=== PATIENT | female | born 1970 | race Caucasian/White ===

== ENCOUNTER 2019-09-03 08:33 | Day surgery (SDC) | payer OTHER ==
[~2019-09-03] VITALS: Ht 162.6 cm; Wt 74.4 kg
[~2019-09-03 08:33] MED LIST: BUPIVACAINE/PF 0.25% ONE; CHOL2000 PO; INDIGO CARMINE 0.8%, 5ML ONE; LEVO125T5 PO; THROMBIN (RECOMBINANT) 5,000 UNIT VIAL TP ONE; THROMBIN SPRAY 20,000 UNIT SPRAY TP ONE; [UNRECOGNIZED DRUG - OTHER] PEG
[2019-09-03] MEDS ORDERED: LACTATED RINGERS 1,000 ML IV SCH ×2 (08:56→12:08)
[2019-09-03] MEDS ORDERED: ACETAMINOPHEN 500 MG TABLET PO ONE (09:00)
[2019-09-03] MEDS ORDERED: LIDOCAINE-MPF 1%, 2ML INFIL ONE (09:00)
[2019-09-03] MEDS ORDERED: DIAZEPAM 5 MG TABLET PO ONE (09:00)
[2019-09-03] MEDS ORDERED: SCOPOLAMINE PATCH, 1.5MG PATCH.TD72 TD ONE (09:00)
[2019-09-03 09:03] VITALS: BP 110/75
[2019-09-03] MEDS ORDERED: VANCOMYCIN 1,000 MG ONE (10:06)
[2019-09-03] MEDS ORDERED: FENTANYL PF 250 MCG/5ML ONE (10:18)
[2019-09-03] MEDS ORDERED: MIDAZOLAM 1 MG/ML, 2ML ONE (10:18)
[2019-09-03] MEDS ORDERED: DEXAMETHASONE 4 MG/ML, 1ML ONE (10:19)
[2019-09-03] MEDS ORDERED: PROPOFOL 10 MG/ML, 20ML ONE (10:19)
[2019-09-03] MEDS ORDERED: ROCURONIUM 10MG/ML,5ML ONE (10:19)
[2019-09-03] MEDS ORDERED: GLYCOPYRROLATE 0.2MG/1ML, 5ML ONE (10:24)
[2019-09-03] MEDS ORDERED: CEFAZOLIN 1,000 MG ONE (10:24)
[2019-09-03] MEDS ORDERED: NEOSTIGMINE 1 MG/ML, 10ML ONE (10:24)
[2019-09-03] MEDS ORDERED: GENTAMICIN 80 MG/2 ML ONE (10:50)
[2019-09-03] MEDS ORDERED: HYDROmorphone 2 MG/ML, 1ML IVPush PRN (11:00)
[2019-09-03] MEDS ORDERED: MEPERIDINE/PF 25MG/ML,1ML IVPush PRN (11:00)
[2019-09-03] MEDS ORDERED: ONDANSETRON 2MG/ML, 2ML IV PRN (11:00)
[2019-09-03] MEDS ORDERED: HALOPERIDOL 5 MG/ML IV PRN (11:00)
[2019-09-03] MEDS ORDERED: ALBUTEROL SULFATE 2.5 MG/3 ML NPPB PRN (11:00)
[2019-09-03] MEDS ORDERED: DIAZEPAM 5 MG/ML, 2ML IVPush PRN (11:00)
[2019-09-03] MEDS ORDERED: PROMETHAZINE 25 MG/ML, 1ML IV PRN (11:00)
[2019-09-03] MEDS ORDERED: EPHEDRINE 50 MG/ML, 1ML IVPush PRN (11:00)
[2019-09-03] MEDS ORDERED: OXYcodone 5 MG/5 ML ORAL.SOL UDC PO PRN (11:00)
[2019-09-03] MEDS ORDERED: MIDAZOLAM 1 MG/ML, 2ML IV PRN (11:00)
[2019-09-03] MEDS ORDERED: PROMETHAZINE 12.5 MG SUPP PR PRN (11:00)
[2019-09-03] MEDS ORDERED: LABETALOL 5MG/ML, 20ML IV PRN (11:00)
[2019-09-03] MEDS ORDERED: hydrALAzine 20 MG/ML, 1ML IV PRN (11:00)
[2019-09-03] MEDS ORDERED: ONDANSETRON ODT 8 MG PO PRN (11:00)
[2019-09-03] MEDS ORDERED: ONDANSETRON 2MG/ML, 2ML ONE ×2 (11:31→12:18)
[2019-09-03] MEDS ORDERED: KETOROLAC 30 MG/1 ML ONE (11:31)
[2019-09-03] MEDS ORDERED: PROMETHAZINE 25 MG/ML, 1ML ONE (12:21)
[2019-09-03] MEDS ORDERED: PROMETHAZINE 25 MG SUPP PR ONE ×2 (12:28→12:30)
[2019-09-03] MEDS ORDERED: ONDANSETRON 2MG/ML, 2ML IVPush PRN (12:30)
[2019-09-03] MEDS ORDERED: IBUPROFEN 600 MG TABLET PO PRN (12:30)
[2019-09-03] MEDS ORDERED: FENTANYL PF 100 MCG/2ML ONE (12:54)
[2019-09-03] MEDS: FENTANYL PF 100 MCG/2ML IV PRN ×2 (12:55→13:04)
[2019-09-03] MEDS: HYDROcodone/APAP 5/325 TABLET PO PRN ×3 (14:37→20:49)
[2019-09-03 17:55] LABS: BASOPHILS # (AUTO) 0.01 x10^3/uL (0-0.1); BASOPHILS % (AUTO) 0 % (0-1); EOSINOPHILS # (AUTO) 0.09 x10^3/uL (0-0.4); EOSINOPHILS % (AUTO) 1 % (1-7); LYMPHOCYTES # (AUTO) 0.64 x10^3/uL (1-3.4); LYMPHOCYTES % (AUTO) 6 % (22-44); MD NO; MEAN CORPUSCULAR HEMOGLOBIN 31.1 pg (27.0-34.8); MEAN CORPUSCULAR HGB CONC 33.8 g/dL (32.4-35.8); MEAN CORPUSCULAR VOLUME 92.1 fL (80-100); MEAN PLATELET VOLUME 7.5 fL (7.4-10.4); MONOCYTES # (AUTO) 0.06 x10^3/uL (0.2-0.8); MONOCYTES % (AUTO) 1 % (2-9); NEUTROPHILS # (AUTO) 10.13 x10^3/uL (1.8-6.8); NEUTROPHILS % (AUTO) 93 % (42-75); PLATELET COUNT 263 x10^3/uL (130-400)
== END 2019-09-03 21:15 | disposition home or self-care (01) ==
LOC: OUT 08:33 → 4NE 19:10 → OUT 21:15
PROVIDERS: ATTEND Obstetrics & Gynecology Female Pelvic Medicine and Reconstructive Surgery
DX: R10.31 Right lower quadrant pain (principal); N81.2 Incomplete uterovaginal prolapse; N39.3 Stress incontinence (female) (male); N90.89 Other specified noninflammatory disorders of vulva and perineum; D25.9 Leiomyoma of uterus, unspecified; N83.11 Corpus luteum cyst of right ovary; F41.9 Anxiety disorder, unspecified; E89.0 Postprocedural hypothyroidism; Z72.89 Other problems related to lifestyle; Z79.890 Hormone replacement therapy; Z79.899 Other long term (current) drug therapy; Z85.850 Personal history of malignant neoplasm of thyroid; Z88.1 Allergy status to other antibiotic agents; Z88.8 Allergy status to other drugs, medicaments and biological substances; Z98.51 Tubal ligation status; Z98.890 Other specified postprocedural states
CPT/HCPCS: 11200; 36415; 57288; 58552; 85025; 88305; 88307; 93005; C1771; J0690; J1100; J1580; J1885; J2250; J2405; J2550; J2704; J2710; J3010; J3370; J3490; J7120; S2900; G0378